=== PATIENT | female | born 1995 | race Caucasian/White ===

== ENCOUNTER 2020-07-23 08:10 | Day surgery (SDC) | payer OTHER ==
[~2020-07-23] VITALS: Ht 170.2 cm; Wt 56.4 kg
[2020-07-23] MEDS ORDERED: RIVA15TA PO (08:42)
[2020-07-23] MEDS ORDERED: BIRTH CONTROL PO (08:42)
[2020-07-23] MEDS ORDERED: CHLORHEXIDINE 15 ML UDC ONE (08:47)
[2020-07-23] MEDS ORDERED: MIDAZOLAM 1 MG/ML, 2ML ONE (08:50)
[2020-07-23] MEDS ORDERED: FENTANYL PF 100 MCG/2ML ONE (08:50)
[2020-07-23] MEDS ORDERED: CHLORHEXIDINE 15 ML UDC MM ONE (09:00)
[2020-07-23] MEDS ORDERED: LACTATED RINGERS 1,000 ML IV SCH (09:00)
[2020-07-23 09:09] VITALS: BP 112/72
[2020-07-23 09:16] LABS: HCG UR SG 1.014 (1.003-1.030)
[2020-07-23] MEDS ORDERED: BUPIVACAINE/PF 0.5% ONE ×2 (09:17→10:52)
[2020-07-23] MEDS ORDERED: LIDOCAINE-MPF 2% ,5ML ONE ×2 (09:17→10:33)
[2020-07-23] MEDS ORDERED: PROMETHAZINE 25 MG/ML, 1ML IVPush PRN (09:30)
[2020-07-23] MEDS ORDERED: MEPERIDINE/PF 25MG/0.5ML IVPush PRN (09:30)
[2020-07-23] MEDS ORDERED: LORazepam 2 MG/ML, 1ML IVPush PRN (09:30)
[2020-07-23] MEDS ORDERED: ALBUTEROL SULFATE 2.5 MG/3 ML NPPB PRN (09:30)
[2020-07-23] MEDS ORDERED: LABETALOL 5MG/ML, 20ML IV PRN (09:30)
[2020-07-23] MEDS ORDERED: hydrALAzine 20 MG/ML, 1ML IV PRN (09:30)
[2020-07-23] MEDS ORDERED: OXYcodone 5 MG/5 ML ORAL.SOL UDC PO PRN (09:30)
[2020-07-23] MEDS ORDERED: ACETAMINOPHEN 325 MG TABLET PO PRN (09:30)
[2020-07-23] MEDS ORDERED: HYDROmorphone 1 MG/ML, 1ML INJ IVPush PRN (09:30)
[2020-07-23] MEDS ORDERED: FENTANYL PF 100 MCG/2ML IV PRN (09:30)
[2020-07-23] MEDS ORDERED: KETOROLAC 30 MG/1 ML ONE (10:33)
[2020-07-23] MEDS ORDERED: PROPOFOL 10 MG/ML, 20ML ONE (10:33)
[2020-07-23] MEDS ORDERED: CEFAZOLIN 1,000 MG ONE (10:33)
[2020-07-23] MEDS ORDERED: DEXAMETHASONE 4 MG/ML, 1ML ONE (10:33)
[2020-07-23] MEDS ORDERED: ONDANSETRON 2MG/ML, 2ML ONE (10:33)
[2020-07-23] MEDS ORDERED: PROPOFOL 10 MG/ML, 50ML ONE (16:05)
== END 2020-07-23 13:00 | disposition home or self-care (01) ==
LOC: OUT 08:10
PROVIDERS: ATTEND Orthopaedic Surgery Foot and Ankle Surgery
DX: S82.391A Other fracture of lower end of right tibia, initial encounter for closed fracture (principal); S93.691A Other sprain of right foot, initial encounter; M25.571 Pain in right ankle and joints of right foot; Z20.822 Contact with and (suspected) exposure to COVID-19; W19.XXXA Unspecified fall, initial encounter; Y93.89 Activity, other specified; Y92.89 Other specified places as the place of occurrence of the external cause; Y99.8 Other external cause status; Z72.89 Other problems related to lifestyle; Z88.1 Allergy status to other antibiotic agents; Z79.899 Other long term (current) drug therapy; Z86.718 Personal history of other venous thrombosis and embolism; Z79.01 Long term (current) use of anticoagulants
CPT/HCPCS: 27829; 64447; 73600; 81025; C1713; J0690; J1100; J1885; J2250; J2405; J2704; J3010; J7120; U0003; 76000